=== PATIENT | female | born 2000 | race Caucasian/White ===

== ENCOUNTER 2022-09-18 19:20 | Outpatient (REF) | payer BC, SELFPAY ==
[2022-09-20 14:06] LABS: Chlamydia Result Negative (Negative); GC Result Negative (Negative)
== END 2022-09-18 19:21 | disposition home or self-care (01) ==
LOC: LBN 19:20
PROVIDERS: Visit Provider Nurse Practitioner Family
DX: R30.0 Dysuria (principal); N39.0 Urinary tract infection, site not specified; N89.8 Other specified noninflammatory disorders of vagina; Z11.3 Encounter for screening for infections with a predominantly sexual mode of transmission
CPT/HCPCS: 87491; 87591; 87086; 87480; 87510; 87660

== ENCOUNTER 2022-10-25 20:10 | Emergency (ER) | payer BC, SELFPAY ==
[2022-10-25 20:13] VITALS: BP 121/51; PULSE 99; RESP 16; TEMP 36.5; O2SAT 99
--- NOTE | 2022-10-25 21:15 | ED.GENADUL_ITS ---
Discharge Plan Disposition Patient Disposition: Home Condition: Stable Discharge Details Clinical Impression: URI (upper respiratory infection) Primary Care Provider: None,None ED Provider: Randy Hale Home Meds and New Rx's Prescriptions: New benzonatate 200 mg capsule 200 mg PO TID PRN (Reason: cough) Qty: 30 0RF Discharge Instructions Instructions: Upper Respiratory Infection (ED) Additional Instructions: At this time your testing was negative for strep influenza and COVID. You more than likely have another virus. It is important that you get plenty of rest and stay well-hydrated. You may use [id number] medication as needed for symptom control. If you are having any new or worsening symptoms after 7 days of illness please return to the emergency department or urgent care for reassessment and further treatment as needed. Stand Alone Forms: Work Release Referrals: Primary Care Provider [Outside] - 5 days (If not improving) Discharge Data Discharge Date/Time-TO BE ENTERED AT DEPARTURE: 10/25/22 21:57 Medical Decision Making URI x5 days Exam is unremarkable. Exam consistent with uri. 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 Pt non toxic and stable. Negative strep, negative flu, negative COVID(antigen testing) send out testing performed. Will prescribe Tessalon Perles and encourage monitoring of symptoms along with [id number] conservative management. After discussion of diagnosis and plan of care patient has no further needs, questions, or concerns and states clear understanding to return to the emergency department for any worsening symptoms. This documentation was generated using [employer] system, please disregard any oddities of phrase or misspellings. Sign Out No HPI General Mode of arrival: ambulatory . Date/Time Provider Initiated Documentation: 10/25/22 20:21 . Limitations to Documentation: no limitations . Information obtained by: patient and RN notes reviewed . History of Present Illness 22 year old F presents to the emergency department with the chief complaint of sore throat and cough congestion , described as moderate, with intensity rated at 6. Quality is described as aching, and is localized to the mouth (throat). Patient reports no radiation. Patient started experiencing this day(s) (5) and it has been constant. No relieving factors improve symptom(s), No exacerbating factors reported . Patient did receive the following treatments prior to arrival, NSAID Related Data Home Medications Medication Instructions Recorded Confirmed benzonatate 200 mg capsule 200 mg PO TID PRN cough #30 caps 10/25/22 Previous Rx's Medication Instructions Recorded benzonatate 200 mg capsule 200 mg PO TID PRN cough #30 caps 10/25/22 Allergies Allergy/AdvReac Type Severity Reaction Status Date / Time No Known Allergies Allergy Verified 09/18/22 18:43 General Stated Complaint: Sorethroat SHANIQUA: 4 Review of Systems Constitutional Constitutional: Reports body ache(s), Reports chills, Reports fever(s), Reports headache(s) and Reports malaise Eyes Eyes: Denies eye discharge ENT Ears, Nose, Mouth, and Throat: Reports as per HPI, Denies ear discharge, Denies otalgia, Reports headache(s), Reports nasal congestion, Reports nasal discharge, Denies neck pain, Reports sinus pressure, Reports sore throat and Denies throat swelling Cardiovascular Cardiovascular: Denies chest pain and Denies dyspnea Respiratory Respiratory: Reports cough and Denies dyspnea Musculoskeletal Musculoskeletal: Denies joint swelling and Denies neck pain Integumentary/Breasts Skin/Breast: Denies rash Neurologic Neurologic: Reports headache(s) Allergic/Immunologic Allergic/Immunologic: Denies throat swelling PFSH All Active Problems (Updated 10/25/22 @ 21:16 by Randy Hale NP) URI (upper respiratory infection) (Acute) Vaginal discharge (Acute) Social History Smoking/Tobacco Use Status: Current every day Tobacco Type: cigarettes Smoking risk assessment performed?: Yes Drug use: Socially Substance use type: marijuana Do you feel safe at home: Yes Do you feel safe in your relationship?: Yes Exam Const General: cooperative, comfortable and no acute distress Orientation: alert and awake [facility] Head: normal to inspection, normocephalic and atraumatic Ears: hearing grossly normal bilaterally and TM's normal bilaterally General nose exam: external nose normal Face and sinus: no erythema Mouth: oral mucosae normal, no drooling, no muffled voice and no trismus Throat: posterior oropharynx normal Neck Neck: normal visual inspection, full ROM, no lymphadenopathy, no meningeal signs, trachea midline and supple Resp Effort & Inspection: normal respiratory effort, able to speak in complete sentences and cough Quality of cough: dry Auscultation: clear to auscultation bilaterally Cardio Rate: regular rate Rhythm: regular rhythm Heart Sounds: S1 normal, S2 normal, normal S1 and S2, no click, no gallops, no murmurs and no rubs Skin General skin exam: no rashes or lesions noted and dry skin (warm) Neuro General: patient alert, patient awake, patient oriented x3, gait normal and moves all extremities Cognition: normal cognition Speech: speech normal Course Vital Signs Vital signs: Vital Signs Temperature 36.5 C 10/25/22 20:13 Pulse 99 H 10/25/22 20:13 Respiratory Rate 16 10/25/22 20:13 Blood Pressure 121/51 L 10/25/22 20:13 Pulse Oximetry 99 10/25/22 20:13 Temperature 36.5 C 10/25/22 20:13 Temperature Source Oral 10/25/22 20:13 Pulse 99 H 10/25/22 20:13 Respiratory Rate 16 10/25/22 20:13 Respiratory Effort 10/25/22 20:17 Blood Pressure 121/51 L 10/25/22 20:13 Blood Pressure Position Sitting 10/25/22 20:13 Pulse Oximetry 99 10/25/22 20:13 Oxygen Delivery Method Trach Collar 10/25/22 20:13 Oxygen Flow Rate 0 10/25/22 20:13 Pain Level 7 10/25/22 20:13 Lab/Test Results Lab/Test Results: 10/25/22 20:45 Pharynx Group A Streptococcus Culture - Pending POC Strep Test-LISA(Rapid) Start: 10/25/22 20:21 Freq: .Rapid Strep Test Status: Active Protocol: Document 10/25/22 20:57 TRINY (Rec: 10/25/22 21:04 [id number] [id number]) Strep test-LISA(Rapid)-POC POC-Strep test-LISA (Rapid) Negative POC-Strep test-LISA (Rapid) Negative
[2022-10-27 10:55] LABS: COVID-19 RT-PCR UVMMC Result Negative (Negative)
== END 2022-10-25 21:57 | disposition home or self-care (01) ==
PROVIDERS: Emergency Provider Nurse Practitioner Family
DX: J06.9 Acute upper respiratory infection, unspecified (principal); F17.210 Nicotine dependence, cigarettes, uncomplicated; J02.9 Acute pharyngitis, unspecified
CPT/HCPCS: 87880; 99283; U0003; 87081

== ENCOUNTER 2022-12-06 10:36 | Emergency (ER) | payer BC, SELFPAY ==
[2022-12-06 10:40] VITALS: BP 114/67; PULSE 75; RESP 16; TEMP 37; O2SAT 99
--- NOTE | 2022-12-06 11:30 | DI.US_ITS ---
Exam(s) US PELVIS EXAM: US PELVIS CLINICAL HISTORY: pelvic pain TECHNIQUE: Ultrasound of the pelvis was performed transabdominally (as per request), using the urina ry bladder is an acoustic window. COMPARISON: No exams were available for comparison FINDINGS: UTERUS: Appears nongravid and anteverted. Measures 8 cm length x 3 cm AP x 4.7 cm wide. There are no uterine fibroids. Endometrial thickness measures 5 mm. There is no fluid in the endometrial canal. CERVIX: There are no obvious nabothian cysts. RIGHT OVARY: Measures 2 x 1.6 x 1.8 cm No significant cysts nor masses evident in the right ovary. LEFT OVARY: Measures 0.3 x 1.8 x 2.5 cm No significant cysts nor masses evident in the left ovary. Vascular flow was demonstrated in both ovaries. There are no extraovarian adnexal masses evident on images. CUL-DE-SAC: However, there is a small amount of fluid in the cul-de-sac as well as adjacent to the fu ndus of the uterus. IMPRESSION: 1. Normal appearing uterus and age-appropriate endometrium. 2. No abnormal ovarian findings. 3. Some fluid in the cul-de-sac noted mild-moderate. Correlation with test recommended. T his study does not exclude possibility of ectopic . Called by myself to ER provider. DATA REPOSITORY:
[2022-12-06] MEDS: metroNIDAZOLE 500 MG TAB 2000 MG PO (11:40)
[2022-12-06] MEDS: Doxycycline Hyclate 100 MG CAP PO (11:40)
[2022-12-06] MEDS: Levonorgestrel 1.5 MG KIT/PACKET PO (11:41)
[2022-12-06 11:58] LABS: Abs Immature Grans 0.02 10^3/uL (0.0-0.06); Absolute Basophil Count 0.05 10^3/uL (0.0-0.2); Absolute Eosinophil Count 0.14 10^3/uL (0.0-0.7); Absolute Lymphocyte Count 1.65 10^3/uL (1.2-3.4); Absolute Monocyte Count 0.84 10^3/uL (0.1-0.8); Absolute Neutrophil Count 5.96 10^3/uL (1.2-6.7); Basophils % 0.6; Eosinophils % 1.6; HCT 37.3 % (36.0-46.0); HGB 12.8 g/dL (11.2-15.7); Immature Grans % 0.2; Lymphocytes % 19.1; MCH 30.7 pg (27.0-33.0); MCHC 34.3 % (32.0-36.0); MCV 89 fL (80-95); Monocytes % 9.7; Neutrophils % 68.8; Platelet Count 232 10^3/uL (130-400); RBC 4.17 10^6/uL (3.93-5.22); RDW 12.9 % (11.7-14.6); RDW-SD 42.1 fL; WBC 8.66 10^3/uL (4.4-10.8)
[2022-12-06 12:12] LABS: ALT 15 U/L (14-59); AST 14 U/L (15-37); Albumin 3.7 g/dL (3.4-5.0); Alkaline Phosphatase 51 U/L (46-116); Anion Gap 7.6 mmol/L (3-11); BUN 12 mg/dL (7-18); Bilirubin, Total 0.6 mg/dL (0.2-1.0); CO2 25.4 mmol/L (21.0-32.0); CREATININE 0.6 mg/dL (0.55-1.02); Calcium 8.7 mg/dL (8.5-10.1); Chloride 108 mmol/L (98-107); Estimated GFR 128.46 (mL/min/1.73m2); Glucose 95 mg/dL (74-106); Potassium 3.9 mmol/L (3.5-5.1); Sodium 141 mmol/L (136-145); Total Protein 6.8 g/dL (6.4-8.2)
[2022-12-06 12:21] LABS: Bilirubin Negative (Negative); Blood Negative (Negative); Clarity Clear (Clear); Glucose Negative (Negative); Ketones Negative (Negative); Leukocyte Esterase Negative (Negative); Nitrite Negative (Negative); Specific Gravity >= 1.030 (1.005-1.025); Urobilinogen 0.2 EU/dL (Up TO 0.2)
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
[2022-12-06] MEDS: Raltegravir Potassium 400 MG TAB PO (15:00)
[2022-12-06] MEDS: Emtricitabine/Tenofovir 200 mg/300 mg TAB 1 EACH PO (15:00)
[2022-12-07 11:02] LABS: Syphilis Serology (RPR) Negative (Negative)
[2022-12-07 11:06] LABS: HBs Antibody, Quant <3.1 mIU/mL (See Note); Hep B Surface Ab Negative (See Note); Hepatitis B Core Antibody Negative (Negative); Hepatitis B Surface Antigen Negative (Negative)
[2022-12-07 13:50] LABS: Chlamydia Result Negative (Negative); GC Result Negative (Negative)
== END 2022-12-06 15:14 | disposition home or self-care (01) ==
PROVIDERS: Emergency Provider Physician Assistant
DX: T74.21XA Adult sexual abuse, confirmed, initial encounter (principal); R10.814 Left lower quadrant abdominal tenderness
CPT/HCPCS: 36415; 80053; 81025; 86704; 86706; 87340; 87491; 87591; 96365; 96372; 96375; 99284; 76856; 81003; 85025; 86592; 87480; 87510; 87660; J0696